=== PATIENT | female | born 2000 | race Two or more races ===

== ENCOUNTER 2023-10-10 20:13 | Observation (INO) | payer OTHER ==
[~2023-10-10] VITALS: Ht 154.9 cm; Wt 92.1 kg
== END 2023-10-10 23:01 | disposition home or self-care (01) ==
LOC: LDRP 20:13
PROVIDERS: ADMIT Obstetrics & Gynecology; ATTEND Obstetrics & Gynecology
DX: O26.892 Other specified pregnancy related conditions, second trimester (principal); Z3A.25 25 weeks gestation of pregnancy; V43.62XA Car passenger injured in collision with other type car in traffic accident, initial encounter; Y93.89 Activity, other specified; Y92.410 Unspecified street and highway as the place of occurrence of the external cause; Y99.8 Other external cause status
CPT/HCPCS: 59025; 76805; 81002; 94760; G0378